=== PATIENT | male | born 1930 | race Caucasian/White ===

== ENCOUNTER 2018-12-12 17:01 | Emergency (ER) | payer OTHER ==
--- NOTE | 2018-12-12 17:20 | EDPHY ---
General Time Seen by Provider: 12/12/18 17:04 Narrative: CLINICAL IMPRESSION: Right hand skin tear ASSESSMENT/PLAN: Patient is an 88-year-old male with significant history of hypertension hyperlipidemia who presents to the emergency department with complaints of a right hand skin tear. Patient is not toxic appearing, he is in no distress. Physical examination reveals a 10 cm thick skin tear in the shape of a large V on the dorsal aspect of his right hand. There is no evidence of deep structure involvement, neurovascular compromise, foreign body, or bony involvement. The wound was not contaminated, tetanus status was up-to-date. The wound was irrigated and then repaired as discussed in the procedure note, the patient tolerated this well. Wound care instructions reviewed, return precautions discussed. ED PROCEDURES: Laceration Repair Verbal consent obtained by patient. Risks discussed, including but not limited to infection, pain, retained foreign body, need for additional repair, poor cosmetic result, tendon damage, nerve damage, poor wound healing, vascular damage. Alternatives to repair discussed. [place] protocol used to establish correct patient, procedure, equipment and site. Anesthesia obtained by local infiltration. Anesthetized with 1% lidocaine with epinephrine. Laceration location dorsal aspect of the right hand across the 1st and 2nd metacarpal, v-shaped 10 cm thick skin tear, depth 3 mm, Repair type simple. Patient was prepped and draped in usual sterile fashion. Hemostasis achieved with direct pressure. Wound explored through full range of motion and entire depth of wound probed and visualized with gloved finger. No suspicion for nerve damage, tendon damage, underlying fracture, vascular damage, foreign body, or contamination. Area was cleansed with Shur-Clens and irrigated with sterile saline as per protocol. No foreign body or material removed. Repair method- combination of 6.0 and 5.0 Prolene simple interrupted. 13 sutures placed. Well aligned, closely approximated. wound was dressed with Steri -Strips and a sterile dressing. Patient tolerated well with no immediate complications. Wound care: Clean and dry x 24 hours, gently clean with soap and water, cover with nonstick dressing and bandage. Suture/Staple removal: 7 Days CHIEF COMPLAINT: Laceration HPI: Patient is an 88-year-old male with a significant medical history of hypertension hyperlipidemia who presents to the emergency department with complaints of a right hand skin tear. Patient reports just prior to arrival he was working out at the gym, he went to adjust the weights when he caught his hand on a piece of metal causing a skin tear to his right hand. He replaced the skin in the anatomical position and put a dressing on it, he was evaluated at the [facility] [place] and they recommended he come here for further evaluation and management. This was not a crush injury, he denies any hand pain. He is up-to-date on his tetanus status, he is right-hand dominant. He denies any numbness or tingling of the hand or digits. REVIEW OF SYSTEMS: All other systems negative, please see HPI. PHYSICAL EXAM: General Appearance: Alert, oriented, appropriate for age, cooperative, NAD, well hydrated, non-toxic appearing, VSS, no hypoxia. Neurological: Alert and oriented x 3. Cranial nerves 2-12 grossly intact. Skin: Warm, dry. 10 cm v-shaped skin tear across the dorsal aspect of the right hand, extends from the 1st MCP across the 1st metacarpal. There is surrounding ecchymosis, mildly tender to palpation. No significant active bleeding. Upper Extremities: Bilateral upper extremities are unremarkable. Intact distal pulses, Full range of motion intact, no tenderness, no ecchymosis or edema. Lower Extremities: Intact distal pulses, No edema, No tenderness, No cyanosis, full range of motion intact, No calf tenderness bilaterally. MEDICAL DECISION MAKING: Patient was seen independently. Secondary supervising physician at time of evaluation was Dr. Wang, he did not evaluate this patient. Diagnosis: Right hand skin tear. Summary: See assessment and plan for summary of ED visit Clinical lab tests: Not applicable. Independent visualization of images, tracing, or specimens not applicable. Decision to obtain medical records or history from someone other than the patient: No Review / Summarize previous medical records: Yes Disposition: Stable, discharge - History Smoking Status: Never smoked - Objective Vital Signs: Initial Vital Signs Temperature (C) 36.7 C 12/12/18 17:06 Heart Rate 78 12/12/18 17:06 Respiratory Rate 18 12/12/18 17:06 Blood Pressure 125/74 H 12/12/18 17:06 O2 Sat (%) 93 12/12/18 17:06 O2 Delivery Mode Room Air Allergies/Adverse Reactions: No Known Allergies Allergy (Unverified 12/12/18 17:04) Home Medications: Medication Instructions Recorded Cephalexin [Keflex (*)] 500 mg PO Q6H 5 Days cap 12/12/18 Diovan Hct 160-12.5 mg Tab 12/12/18 Departure - Departure Clinical Impression: Skin tear of right hand without complication Qualifiers: Encounter type: initial encounter Qualified Code(s): S61.411A - Laceration without foreign body of right hand, initial encounter Condition: Good Instructions: Skin Tear (ED) Additional Instructions: DISCHARGE INSTRUCTIONS FROM YOUR PROVIDER Thank you for visiting our emergency department today. Please keep in mind that discharge from the emergency department does not mean that there is nothing wrong - it simply means that we have not identified an emergency condition that requires further evaluation or treatment in the hospital. You should always plan to follow up with primary care for re-evaluation of your condition in the next 2-3 days. Keep wound clean and dry for 24 hours. Then remove dressing, clean at least twice daily or when soiled with soap and water, apply antibiotic ointment and dressing. Let the Steri-Strips , off on their own, do not pull them off. Continue wearing the wrist splint for protection of your large skin tear. Do not soak the wound while the stitches are in place. Anticipate suture removal in 7 days. Tylenol every 4-6 hours as directed as needed for pain. Do not exceed 4000 mg in 24 hours. Continue your regular medications as prescribed. Schedule a follow-up visit with your primary care physician or the emergency department for suture removal in 7 days and sooner for wound check for any concerns. Return for signs of wound infection ie: redness, swelling, drainage, foul odor, red streaks, fever, chills, pain, bleeding, if the stitches pop, if the wound opens or for any other new, worsening or worrisome symptoms. People present with illnesses and injuries in different ways, and it is always possible that we have missed something. Again, thank you for choosing our emergency department. We hope that you feel better. Referrals: VIKTORIA WARD [Other] - 1-2 days without fail ED,PHYSICIAN PETRA [Medical Doctor] - As per Instructions (Seven days for suture removal) Prescriptions: Cephalexin [Keflex (*)] 500 mg PO Q6H 5 Days cap
[2018-12-12 19:05] VITALS: BP 152/68
== END 2018-12-12 19:03 | disposition home or self-care (01) ==
PROC: 0HQFXZZ Repair Right Hand Skin, External Approach (ICD-10-PCS; principal; 2018-12-12)
DX: S61.411A Laceration without foreign body of right hand, initial encounter (principal); I10 Essential (primary) hypertension; E78.5 Hyperlipidemia, unspecified; W26.8XXA Contact with other sharp object(s), not elsewhere classified, initial encounter; Y93.B9 Activity, other involving muscle strengthening exercises; Y92.39 Other specified sports and athletic area as the place of occurrence of the external cause
CPT/HCPCS: 12004; 99283; L3807